=== PATIENT | female | born 1965 | race Caucasian/White ===

== ENCOUNTER 2023-05-20 13:58 | Outpatient (AMB) | payer OTHER, SELFPAY ==
--- NOTE | 2023-05-20 14:17 | A.SPINEOV_ITS ---
Intake Intake Visit Reasons: Lumbar radiculopathy Intake Note: Ms. Alba is here today c/o low back pain radiating into legs. MRI done @ [facility]. 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 Alba to our office today. She has a 58-year-old female presenting here today for evaluation of left-sided low back pain radiating into her left buttock, into her left anterior groin, left lateral thigh and into her left lateral calf. She also has numbness of her toes. The symptoms are aggravated with standing and walking but do not necessarily go away when she sits down. She is due for an upcoming hip replacement on the right side and has noticed over time that the limping from the right hip seems to have caused this back issue to flare up. She has a history of known degenerative disc disease with occasional back pain from time to time but the pain down the left leg has been severe and debilitating. She did get [address] Correia and they seemed to have helped in take away the intense pain that she was having. However, she still left with a lingering radiculopathy down the left leg. Over the years she has been through physical therapy. She is done medication trials like Motrin etc.. These things helped intermittently. As above she has had the cortisone injections which did help a lot. She has an MRI showing multilevel degenerative disc disease with spondylolysis and spondylolisthesis at L5-S1 with bilateral foraminal narrowing. She is sent today for surgical evaluation. PMH: She is relatively healthy, no history of heart attacks, strokes, abdominal surgery, kidney disease, coagulopathy. She did have a right knee surgery and is due for an upcoming right total hip replacement Social hx: She does not smoke, drink or use any recreational drugs. Medications: Currently she takes no medications. She was taking ibuprofen but because of the hip replacement she can not take this around the time of her surgery Allergies: None Physical exam: Patient is awake alert oriented no acute distress, she walks with a limp and is uncomfortable. She does have full strength of bilateral lower extremities with normal reflexes. No Julia sign, no clonus. She does have positive SANDOVAL testing bilaterally. Imaging review: MRI done at [place] in April 2023 shows evidence of multilevel degenerative disc disease with more less [id number] contact at L2- 3, L3-4 and L4-5. She has a spondylolysis at the L5 level with slight anterior listhesis of L5 on S1. There is bilateral neural foraminal narrowing severe both of these levels. Impression: 50-year-old female, due for an upcoming right total hip replacement, who has also had superimposed chronic back pain and left-sided low back pain recently aggravated a lumbar radiculopathy which is going down her left buttock, left lateral thigh, left lateral calf as well as into her left groin. She has numbness in the top of her foot. She underwent [address] Correia at the L5-S1 level giving her good relief. She still has some lingering pain there though that is intense at times when she is walking. She has been through conservative treatment at this point. I suspect that the antalgic gait from the right hip arthritis somehow exacerbated the l umbar area causing her low back and left leg symptoms. She would like to see how it goes after her hip replacement, but if she is still having significant amounts of pain, I think she would be a good surgical candidate given the amount of compression we see at the L5-S1 level. We have to make a distinction though about back pain versus lower extremity radiculopathy as the goal end point of surgery. In order to treat her back pain surgically, we could be looking at a multilevel fusion given the diffuse amount of arthritis that she has. If we take a more focused approach, she distinctly tells me that the leg pain is her primary complaint. The back pain is uncomfortable and a part of her presentation but is not the reason she was in the office. Therefore, I think Dr. Knight would choose either an single-level anterior lumbar interbody fusion to address the spondylolysis and the anterior listhesis verses a unilateral left sided L5 foraminotomy to strictly address the foraminal rose apse. I will review the patient's imaging with him for a final decision. I will see the patient back in 6 weeks to re-evaluate how she is doing after the hip replacement. Thank you for allowing us to care for your patient. The total time spent with this visit with this patient was 45 minutes reviewing history, physical exam, lumbar imaging review, and implementation of treatment plan or further diagnostic testing Bennett Knight MD,PhD [facility] Coding Level of Care Code New Pt Level 4 (96079) Diagnoses Spondylolisthesis, lumbar region M43.16
== END 2023-05-20 14:50 | disposition home or self-care (01) ==
PROVIDERS: Referring Provider Physician Assistant; Visit Provider Physician Assistant
DX: M43.16 Spondylolisthesis, lumbar region (principal)
CPT/HCPCS: 99204

== ENCOUNTER → 2023-05-20 13:58 | Outpatient (BNVA) | payer OTHER, SELFPAY | PROVIDERS: Visit Provider Physician Assistant ==

== ENCOUNTER 2023-07-08 14:31 | Outpatient (AMB) | payer OTHER, SELFPAY ==
--- NOTE | 2023-07-08 14:39 | A.SPINEOV_ITS ---
Intake Intake Visit Reasons: 6 month follow up Intake Note: Ms. Priest is here today for 6 month F/u. 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 She is still continuing to have back pain with pain going down her left leg into her left calf consistent with the L5 dermatome. She had beautiful response to the injections at L5 by Dr Correia, but obviously the affect was temporary. Since her hip replacement the pain maybe slightly better in the left leg but she is still having daily pain in her quality of life is limited significantly. The back pain remains a significant limitor as well. I went over her imaging done at [facility] again, this is showing multilevel degenerative disc disease, spondylolysis at L5 with bilateral neural foraminal stenosis an anterior listhesis. we reviewed possible surgical options including an anterior lumbar interbody fusion verses trans Kambin approach. We reviewed risks benefits recovery etc.. She understands that because she has multilevel degenerative disc disease the chance that she has complete relief of her back pain is not realistic, but it should improve. I quoted 90% success rate for improvement in her leg pain. I am going to speak with Dr. Knight and get back to the patient with a final plan. Total amount of time spent in this visit was 20 minutes in discussion of symptoms, lumbar MRI imaging results and subsequent plan of care Bennett Knight MD,PhD [facility] Coding Level of Care Code Est Pt Level 3 (70303) Diagnoses Spondylolisthesis, lumbar region M43.16
== END 2023-07-08 15:21 | disposition home or self-care (01) ==
PROVIDERS: Visit Provider Physician Assistant
DX: M43.16 Spondylolisthesis, lumbar region (principal)
CPT/HCPCS: 99213

== ENCOUNTER → 2023-07-08 14:31 | Outpatient (BNVA) | payer OTHER, SELFPAY | PROVIDERS: Visit Provider Physician Assistant ==